=== PATIENT | female | born 1995 | race Caucasian/White ===

== ENCOUNTER 2018-05-10 21:54 | Inpatient (IN) | payer SELFPAY ==
[2018-05-10] MEDS ORDERED: Ondansetron 4 MG/2 ML SDV IVPUSH PRN (22:24)
[2018-05-10] MEDS ORDERED: Nalbuphine 20 MG/ML 1 ML Syringe IVPUSH PRN (22:24)
[2018-05-10] MEDS ORDERED: Sodium Chloride 0.9% 10 ML Syringe FLUSH PRN (22:24)
[2018-05-10] MEDS ORDERED: Acetaminophen 325 MG Tab PO PRN (22:24)
--- NOTE | 2018-05-10 22:26 | PCM.LDHP ---
L&D History of Present Illness - General Date of Service: 05/10/18 Admit Problem/Dx: Patient Status Order with Admit Dx/Problem 05/10/18 22:24 Patient Status [ADT] Routine Admission Diagnosis/Problem Admission Diagnosis/Problem Normal labor Source of Information: Patient History Limitations: Reports: No Limitations - History of Present Illness Introduction:: Patient is a 22 y/o at 40 4/7 wks gestation who presents in labor. Reports uncomplicated . Began albina earlier today. No LOF or VB. No other issues. 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 LMP (Approximate): - Past Surgical History Respiratory Surgical History: Reports: Other (See Below) (Procedure for tracheomalacia at 4 months of life) GI Surgical History: Reports: Appendectomy Social & Family History - Tobacco Use Smoking Status *Q: Never Smoker - Alcohol Use Alcohol Use History: No - Recreational Drug Use Recreational Drug Use: No H&P Review of Systems - Review of Systems: Review Of Systems: See Below General: Reports: No Symptoms Pulmonary: Reports: No Symptoms Cardiovascular: Reports: No Symptoms Gastrointestinal: Reports: Abdominal Pain (with contractions ) Genitourinary: Reports: No Symptoms Musculoskeletal: Reports: No Symptoms Psychiatric: Reports: No Symptoms Neurological: Reports: No Symptoms L&D Exam - Exam Exam: See Below - Vital Signs Vital Signs: Last Vital Signs Temp 36.5 C 05/10/18 22:13 Pulse 105 H 05/10/18 22:13 Resp 18 05/10/18 22:13 BP 136/91 H 05/10/18 22:13 Pulse Ox Weight: 75.07 kg - OB Specific Contraction Intensity: Moderate Movement: Active Heart Tones: Present Heart Tones per Min: 155 Heart Rate (FHR) Variability: Moderate (6-25 bmp) Presentation: Vertex (per nursing exam) - Avalos Score Avalos Score Dilation: 3-4 cm (per nursing exam) - Exam General: Alert, Oriented, Cooperative Lungs: Clear to Auscultation, Normal Respiratory Effort Cardiovascular: Regular Rate, Regular Rhythm GI/Abdominal Exam: Soft, Non-Tender Genitourinary: Normal external exam Extremities: Normal Inspection Skin: Warm, Dry, Intact - Problem List (1) 40 weeks gestation of SNOMED Code(s): 52963459 ICD Code: Z3A.40 - 40 WEEKS GESTATION OF Status: Acute Current Visit: Yes (2) Normal labor SNOMED Code(s): 97012498 ICD Code: O80 - ENCOUNTER FOR FULL-TERM UNCOMPLICATED DELIVERY; Z37.9 - OUTCOME OF DELIVERY, UNSPECIFIED Status: Acute Current Visit: Yes Problem List Initiated/Reviewed/Updated: Yes Orders Last 24hrs: Active Orders 24 hr Category Date Time Status Patient Status [ADT] Routine ADT 05/10/18 22:24 Ordered Activity as Tolerated [RC] PFP Care 05/10/18 22:24 Ordered Communication Order [RC] ASDIRECTED Care 05/10/18 22:24 Ordered Heart Tones [RC] ASDIRECTED Care 05/10/18 22:24 Ordered Non Stress Test [RC] PER UNIT ROUTINE Care 05/10/18 22:24 Ordered Notify Provider [RC] PFP Care 05/10/18 22:24 Ordered Notify Provider [RC] PRN Care 05/10/18 22:24 Ordered Peripheral IV Care [RC] . DIRECTED Care 05/10/18 22:24 Ordered Vital Signs [RC] PER UNIT ROUTINE Care 05/10/18 22:24 Ordered Regular Diet [DIET] Diet 05/10/18 Dinner Ordered ALANINE AMINOTRANSFERASE,ALT [CHEM] Routine Lab 05/10/18 22:24 Ordered ASPARTATE AMNIOTRANSFERASE,AST [CHEM] Routine Lab 05/10/18 22:24 Ordered CBC W/O DIFF,HEMOGRAM [HEME] Routine Lab 05/10/18 22:24 Ordered CREATININE W/GFR [CHEM] Routine Lab 05/10/18 22:24 Ordered RAPID PLASMA REAGIN,RPR [CHEM] Routine Lab 05/10/18 22:24 Ordered TYPE AND SCREEN [BBK] Routine Lab 05/10/18 22:24 Ordered Acetaminophen [Tylenol] Med 05/10/18 22:24 Ordered 650 mg PO Q4H PRN Lactated Ringers [Ringers, Lactated] 1,000 ml Med 05/10/18 22:30 Ordered IV ASDIRECTED Nalbuphine [Nubain] Med 05/10/18 22:24 Ordered 10 mg IVPUSH Q2H PRN Ondansetron [Zofran] Med 05/10/18 22:24 Ordered 4 mg IVPUSH Q4H PRN Oxytocin/Lactated Ringers [Pitocin in LR 10 Units/1,000 Med 05/10/18 22:30 Ordered ML] 10 unit in 1,000 ml IV .CONTINUOUS Sodium Chloride 0.9% [Saline Flush] Med 05/10/18 22:24 Ordered 10 ml FLUSH ASDIRECTED PRN Electronic Heart Tones Ext w TOCO [WOMSER] Oth 05/10/18 22:24 Ordered Routine Electronic Heart Tones Internal [WOMSER] Per Unit Ot 05/10/18 22:24 Ordered Routine Peripheral IV Insertion Adult [OM.PC] Routine Ot 05/10/18 22:24 Ordered Resuscitation Status Routine Resus Stat 05/10/18 22:24 Ordered Assessment/Plan Comment:: 22 y/o at 40 4/7 wks presents in labor * Patient with 2 low mild range BP's. Will order labs and monitor closely. If findings of severe disease would require magnesium. She expressed understanding * GBS negative, no need for antibiotics * Pain management per patient preference * Anticipate
[2018-05-10] MEDS ORDERED: Oxytocin/Lactated Ringers 10 UNIT/1,000 ML BAG IV SCH (22:30)
[2018-05-10] MEDS: Lactated Ringers 1,000 ML IV SCH (23:47)
[2018-05-11] MEDS ORDERED: Ondansetron 4 MG/2 ML SDV IVPUSH PRN ×2 (00:41→06:04)
[2018-05-11] MEDS ORDERED: fentaNYL 100 MCG/2 ML SDV EPIDUR PRN (00:41)
[2018-05-11] MEDS ORDERED: ePHEDrine 50 MG/ML SDV IVPUSH PRN ×2 (00:41→06:04)
--- NOTE | 2018-05-11 00:43 | PCM.PREANE ---
Preanesthetic Assessment - Anesthesia/Transfusion/Family Hx Anesthesia History: Prior Anesthesia Without Reaction Family History of Anesthesia Reaction: No Transfusion History: No Prior Transfusion(s) Intubation History: Unknown - Review of Systems General: Fatigue Pulmonary: No Symptoms Cardiovascular: No Symptoms (Gestational HTN towards the end of ) Gastrointestinal: Constipation, Nausea Neurological: Seizure (infant febrile seizure.) Other: Reports: None (history of low blood sugar) - Physical Assessment NPO Status Date: 05/10/18 NPO Status Time: 17:00 Pulse: 105 O2 Sat by Pulse Oximetry: 99 Respiratory Rate: 18 Blood Pressure: 136/91 Temperature: 36.5 C Vital Signs: Last Vital Signs Temp 36.5 C 05/10/18 22:13 Pulse 105 H 05/10/18 22:13 Resp 18 05/10/18 22:13 BP 136/91 H 05/10/18 22:13 Pulse Ox Height: 1.6 m Weight: 75.07 kg ASA Class: 2 Mental Status: Alert & Oriented x3 Airway Class: Mallampati = 2 Dentition: Reports: Normal Dentition, Caries Thyro-Mental Finger Breadths: 3 Mouth Opening Finger Breadths: 3 ROM/Head Extension: Full Lungs: Clear to Auscultation, Normal Respiratory Effort Cardiovascular: Regular Rate, Regular Rhythm, No Murmurs - Lab Values: Laboratory Last Values WBC 11.79 K/mm3 (3.98-10.04) H 05/10/18 22:50 RBC 4.52 M/mm3 (3.98-5.22) 05/10/18 22:50 Hgb 12.4 gm/L (11.2-15.7) 05/10/18 22:50 Hct 38.1 % (34.1-44.9) 05/10/18 22:50 MCV 84.3 fl (79.4-94.8) 05/10/18 22:50 MCH 27.4 pg (25.6-32.2) 05/10/18 22:50 MCHC 32.5 g/dl (32.2-35.5) 05/10/18 22:50 RDW Std Deviation 39.6 fL (36.4-46.3) 05/10/18 22:50 Plt Count 163 K/mm3 (182-369) L 05/10/18 22:50 MPV 11.3 fl (9.4-12.3) 05/10/18 22:50 Creatinine 0.6 mg/dL (0.55-1.02) 05/10/18 22:50 Est Cr Clr Drug Dosing 122.69 mL/min 05/10/18 22:50 Estimated GFR (MDRD) > 60 mL/min (>60) 05/10/18 22:50 AST 16 U/L (15-37) 05/10/18 22:50 ALT 22 U/L (14-59) 05/10/18 22:50 Blood Type O POSITIVE 05/10/18 22:50 Gel Antibody Screen Negative 05/10/18 22:50 Above labs reviewed and noted and within acceptable ranges to proceed with epidural. 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: Neurological History: Reports: Seizure, Other (See Below) Other Neuro History: febrile seizures as a baby - Past Surgical History Respiratory Surgical History: Reports: Other (See Below) (Procedure for tracheomalacia at 4 months of life) GI Surgical History: Reports: Appendectomy - SUBSTANCE USE Smoking Status *Q: Never Smoker Recreational Drug Use History: No - HOME MEDS Home Medications: Home Meds Multivitamin [Multivitamins] 1 each PO 05/10/18 [History] - CURRENT (IN HOUSE) MEDS Current Meds: Current Medications Acetaminophen (Tylenol) 650 mg PO Q4H PRN PRN Reason: Pain (Mild 1-3) and fever Lactated Ringer's (Ringers, Lactated) 1,000 mls @ 100 mls/hr IV ASDIRECTED MARYCHUY Last Infusion: 05/10/18 23:47 Dose: 999 mls/hr Oxytocin/Lactated Ringer's (Pitocin In Lr 10 Units/1,000 Ml) 10 unit in 1,000 mls @ 500 mls/hr IV .CONTINUOUS MARYCHUY Nalbuphine HCl (Nubain) 10 mg IVPUSH Q2H PRN PRN Reason: pain Ondansetron HCl (Zofran) 4 mg IVPUSH Q4H PRN PRN Reason: Nausea/Vomiting Sodium Chloride (Saline Flush) 10 ml FLUSH ASDIRECTED PRN PRN Reason: Keep Vein Open
[2018-05-11] MEDS ORDERED: Bupivacaine/fentaNYL/NS 100 ML Bag EPIDUR SCH (00:45)
[2018-05-11] MEDS: Lactated Ringers 1,000 ML IV SCH ×2 (01:24→03:09)
[2018-05-11] MEDS ORDERED: ceFAZolin 2 GM in Premix Bag 1 BAG IV ONE (04:58)
[2018-05-11] MEDS ORDERED: Citric Acid/Sodium Citrate Solution 30 ML Cup ONE (04:58)
[2018-05-11] MEDS ORDERED: Metoclopramide 10 MG/2 ML SDV IVPUSH ONE (04:58)
[2018-05-11] MEDS ORDERED: Citric Acid/Sodium Citrate Solution 30 ML Cup PO ONE (04:58)
[2018-05-11] MEDS ORDERED: Metoclopramide 10 MG/2 ML SDV ONE (04:58)
--- NOTE | 2018-05-11 05:05 | PCM.SN ---
- Free Text/Narrative Note: Called by nursing at 0406, patient 5 cm with BBOW. Have had intermittent prolonged decelerations, mostly recently at 0400 with SVE. In to assess patient. At 0430 patient noted to be 8-9 cm with a BBOW. AROM performed with release of meconium stained amniotic fluid. IUPC placed. FSE attempted to be placed but unsuccessful. Patient with then another prolonged deceleration into the 70's. Decision made to alert OR crew for . Will move to back. If complete there will attempt pushing. If tolerates will continue there. If continues to have these large decelerations will move to . Patient and her agree. Ambika Armijo MD
[2018-05-11] MEDS ORDERED: Ketorolac 30 MG/ML SDV ONE (05:09)
[2018-05-11] MEDS ORDERED: Oxytocin 10 Units/1 ML SDV ONE (05:09)
[2018-05-11] MEDS ORDERED: ceFAZolin 1 GM Vial ONE (05:09)
[2018-05-11] MEDS ORDERED: Ondansetron 4 MG/2 ML SDV ONE (05:09)
[2018-05-11] MEDS ORDERED: Phenylephrine 1% 10 MG/ML SDV ONE (05:09)
[2018-05-11] MEDS ORDERED: Lactated Ringers 2,000 ML ONE (05:09)
[2018-05-11] MEDS ORDERED: fentaNYL 100 MCG/2 ML SDV ONE (05:14)
[2018-05-11] MEDS ORDERED: Lidocaine 2% with EPINEPHrine 1:200,000 20 ML SDV ONE (05:14)
[2018-05-11] MEDS ORDERED: Morphine PF 10 MG/10 ML SDV ONE (05:16)
--- NOTE | 2018-05-11 05:30 | PCM.SN ---
- Free Text/Narrative Note: 0530 OR crew ready. Fetus has recovered slightly. Since there has been some recovery FOB would now like to defer moving forward with . Reviewed that given previous findings on tracing I don't think it's likely that baby will tolerate pushing effort, however, status is reassuring in this moment and I will not do a against their will. They express understanding. Prefer to monitor. OR crew on standby. Ambika Armijo MD
[2018-05-11] MEDS ORDERED: Bupivacaine 0.25% 10 ML SDV ONE (06:00)
[2018-05-11] MEDS ORDERED: Meperidine PF 50 MG/ML Syringe IVPUSH PRN (06:04)
[2018-05-11] MEDS ORDERED: diphenhydrAMINE 50 MG/ML SDV IVPUSH PRN ×2 (06:04→06:59)
[2018-05-11] MEDS ORDERED: fentaNYL 100 MCG/2 ML SDV IVPUSH PRN (06:04)
[2018-05-11] MEDS ORDERED: HYDROmorphone 0.5 MG/0.5 ML Syringe IVPUSH PRN (06:05)
[2018-05-11] MEDS ORDERED: Phenylephrine 1 MG in Sodium Chloride 0.9% 10 ML IV SCH (06:15)
[2018-05-11] MEDS ORDERED: Meperidine PF 50 MG/ML Syringe ONE (06:18)
--- NOTE | 2018-05-11 06:40 | PCM.POSTAN ---
POST ANESTHESIA ASSESSMENT - MENTAL STATUS Mental Status: Alert - VITAL SIGNS Pulse Rate: 139 SaO2: 100 Resp Rate: 11 Blood Pressure: 145/85 Temperature: 37.4 C - RESPIRATORY Respiratory Status: Respiratory Rate WNL, Airway Patent, O2 Saturation Stable - CARDIOVASCULAR CV Status: Pulse Rate WNL, Blood Pressure Stable - GASTROINTESTINAL GI Status: No Symptoms - POST OP HYDRATION Hydration Status: Adequate & Stable
[2018-05-11] MEDS ORDERED: Ibuprofen 600 MG Tab PO PRN (06:59)
[2018-05-11] MEDS ORDERED: Docusate Sodium 100 MG Cap PO PRN (06:59)
[2018-05-11] MEDS ORDERED: Lanolin 100% Cream 7 GM Tube TOP PRN (06:59)
--- NOTE | 2018-05-11 06:59 | PCM.SN ---
- Free Text/Narrative Note: Shortly after last last note baby with several more decelerations down into the 70's. Family agreeable to PLTCS. Moved to OR.
[2018-05-11] MEDS ORDERED: Dextrose 5%-Lactated Ringers 1,000 ML IV SCH (07:00)
--- NOTE | 2018-05-11 07:04 | PCM.OPNOTE ---
- General Post-Op/Procedure Note Date of Surgery/Procedure: 05/11/18 Operative Procedure(s): Primary low transverse Findings: Baby boy in a vertex presentation, ROP, with Apgars of 8 & 9 and weight of 7 lbs 15 oz. Normal appearance of the uterus, fallopian tubes, and ovaries. 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 Placenta discarded. Fluid Replacement, Intraop: 800 Output, Urine Amount: 200 EBL in mLs: 800 Complications: None Condition: Good Free Text/Narrative:: The risks, benefits, indications, potential complications, and alternatives were explained to the patient and informed consent obtained. After induction of anesthesia, the patient was placed in a supine position and then draped and prepped in the usual sterile manner. A Pfannenstiel incision was made and carried down through the subcutaneous tissue to the fascia. Fascial incision was made and extended transversely. The fascia was from the underlying rectus tissue superiorly and inferiorly. The peritoneum was identified and entered. Peritoneal incision was extended longitudinally. The utero-vesical peritoneal reflection was incised transversely and the bladder flap was bluntly freed from the lower uterine segment. A low transverse uterine incision was made sharply with a scalpel and extended bluntly in a cephalocaudad direction. A baby boy was delivered from a vertex presentation with APGARS as above. After the umbilical cord was clamped and cut cord blood was obtained for evaluation. The placenta was removed intact and appeared normal. The uterus was exteriorized and cleared of clots. The uterine outline, tubes and ovaries appeared normal. The uterine incision was closed with running locked sutures of 0 Vicryl. Hemostasis was obtained with a second imbricating layer of 0 vicryl. The uterus was then placed back into the abdomen. The infracolic gutters were cleared of blood clots. The fascia was then reapproximated with running sutures of 0 Vicryl. The sucutaneous tissue was irrigated with sterile warm normal saline, hemostasis obtained with cautery. This layer was also closed with a running 0 vicryl. The skin was reapproximated with running Subcuticular 4-0 monocryl sutures. Instrument, sponge, and needle counts were correct prior the abdominal closure and at the conclusion of the case.
[2018-05-11] MEDS: Ketorolac 30 MG/ML SDV IVPUSH SCH ×2 (11:59→18:31)
--- NOTE | 2018-05-11 15:40 | PCM48HPAN ---
Post Anesthesia Note - EVALUATION WITHIN 48HRS OF ANESTHETIC Vital Signs in Normal Range: Yes Patient Participated in Evaluation: Yes Respiratory Function Stable: Yes Airway Patent: Yes Cardiovascular Function Stable: Yes Hydration Status Stable: Yes Pain Control Satisfactory: Yes Nausea and Vomiting Control Satisfactory: Yes Mental Status Recovered: Yes
[2018-05-12] MEDS: Ketorolac 30 MG/ML SDV IVPUSH SCH ×2 (00:37→00:55)
[2018-05-12] MEDS ORDERED: Ibuprofen 600 MG Tab PO PRN (06:30)
--- NOTE | 2018-05-12 07:00 | PCM.PNPP ---
- General Info Date of Service: 05/12/18 Functional Status: Reports: Pain Controlled, Tolerating Diet, Ambulating - Review of Systems General: Reports: No Symptoms Pulmonary: Reports: No Symptoms Cardiovascular: Reports: No Symptoms Gastrointestinal: Reports: Abdominal Pain (managed with medications ) Genitourinary: Reports: No Symptoms Musculoskeletal: Reports: No Symptoms - Patient Data Vital Signs - Most Recent: Last Vital Signs Temp 36.6 C 05/12/18 02:00 Pulse 95 05/12/18 02:24 Resp 16 05/12/18 06:00 BP 115/75 05/12/18 02:24 Pulse Ox 98 05/12/18 06:00 Weight - Most Recent: 75.07 kg I&O - Last 24 Hours: Intake & Output 05/11/18 05/12/18 05/12/18 22:59 06:59 14:59 Intake Total 4340 Output Total 3050 Balance 1290 Med Orders - Current: Current Medications Diphenhydramine HCl (Benadryl) 25 mg IVPUSH Q6H PRN PRN Reason: Itching or Nausea Docusate Sodium (Colace) 100 mg PO Q12H PRN PRN Reason: Constipation Emollient Ointment (Lansinoh Hpa) 0 gm TOP ASDIRECTED PRN PRN Reason: Sore Nipples Fentanyl (Sublimaze) 50 mcg IVPUSH Q5M PRN PRN Reason: Pain Hydromorphone HCl (Dilaudid) 0.5 mg IVPUSH ONETIME PRN PRN Reason: Pain Phenylephrine HCl 1 mg/ Sodium (Chloride) 10.1 mls @ 1 mls/sec IV TITRATE MARYCHUY; Protocol Ibuprofen (Motrin) 600 mg PO Q6H PRN PRN Reason: mild pain or fever Meperidine HCl (Demerol) 12.5 mg IVPUSH ONETIME PRN PRN Reason: shivering Ondansetron HCl (Zofran) 4 mg IVPUSH ONETIME PRN PRN Reason: Nausea/Vomiting Oxycodone/Acetaminophen (Percocet 325-5 Mg) 2 tab PO Q4H PRN PRN Reason: Pain (moderate 4-6) Discontinued Medications Acetaminophen (Tylenol) 650 mg PO Q4H PRN PRN Reason: Pain (Mild 1-3) and fever Cefazolin Sodium (Ancef) Confirm Administered Dose 2 gm .ROUTE .STK-MED ONE Stop: 05/11/18 05:10 Citric Acid/Sodium Citrate (Bicitra Solution) 30 ml PO ONETIME ONE Stop: 05/11/18 04:59 Last Admin: 05/11/18 05:01 Dose: 30 ml Citric Acid/Sodium Citrate (Bicitra Solution) Confirm Administered Dose 30 ml .ROUTE .[facility] ONE Stop: 05/11/18 04:59 Last Admin: 05/11/18 07:00 Dose: Not Given Diphenhydramine HCl (Benadryl) 25 mg IVPUSH Q6H PRN PRN Reason: pruritis Ephedrine Sulfate (Ephedrine Sulfate) 5 mg IVPUSH ASDIRECTED PRN PRN Reason: Hypotension Ephedrine Sulfate (Ephedrine Sulfate) 5 mg IVPUSH ASDIRECTED PRN PRN Reason: Hypotension Fentanyl (Sublimaze) 100 mcg EPIDUR Q3H PRN PRN Reason: Pain Last Admin: 05/11/18 00:53 Dose: 100 mcg Fentanyl (Sublimaze) Confirm Administered Dose 100 mcg .ROUTE .[facility] ONE Stop: 05/11/18 05:15 Fentanyl/Bupivacaine HCl (Fentanyl/Bupivacaine/Ns 2 Mcg-0.125% 100 Ml) 100 ml EPIDUR ASDIRECTED [facility] Last Admin: 05/11/18 00:53 Dose: 100 ml Lactated Ringer's (Ringers, Lactated) 1,000 mls @ 100 mls/hr IV ASDIRECTED [facility] Last Admin: 05/11/18 03:09 Dose: 100 mls/hr Oxytocin/Lactated Ringer's (Pitocin In Lr 10 Units/1,000 Ml) 10 unit in 1,000 mls @ 500 mls/hr IV .CONTINUOUS [facility] Cefazolin Sodium/Dextrose 2 gm (/ Premix) 50 mls @ 100 mls/hr IV ONETIME ONE Stop: 05/11/18 05:27 Lactated Ringer's (Ringers, Lactated) Confirm Administered Dose 2,000 mls @ as directed .ROUTE .STK-[facility] ONE Stop: 05/11/18 05:10 Dextrose/Lactated Ringer's (Dextrose 5%-Lactated Ringers) 1,000 mls @ 125 mls/ hr IV ASDIRECTED [facility] Stop: 05/11/18 14:59 Last Admin: 05/11/18 10:06 Dose: 125 mls/hr Ibuprofen (Motrin) 600 mg PO Q6H PRN PRN Reason: mild pain or fever Ketorolac Tromethamine (Toradol) Confirm Administered Dose 30 mg .ROUTE .STK- MED ONE Stop: 05/11/18 05:10 Ketorolac Tromethamine (Toradol) 30 mg IVPUSH Q6H MARYCHUY Stop: 05/12/18 00:16 Last Admin: 05/12/18 00:55 Dose: Not Given Lidocaine/Epinephrine (Xylocaine-Mpf 2%-Epi 1:200,000) Confirm Administered Dose 20 ml .ROUTE .STK-MED ONE Stop: 05/11/18 05:15 Meperidine HCl (Demerol) Confirm Administered Dose 50 mg .ROUTE .STK-MED ONE Stop: 05/11/18 06:19 Metoclopramide HCl (Reglan) 10 mg IVPUSH ONETIME ONE Stop: 05/11/18 04:59 Last Admin: 05/11/18 05:01 Dose: 10 mg Metoclopramide HCl (Reglan) Confirm Administered Dose 10 mg .ROUTE .STK-MED ONE Stop: 05/11/18 04:59 Last Admin: 05/11/18 07:00 Dose: Not Given Morphine Sulfate (Duramorph Pf) Confirm Administered Dose 10 mg .ROUTE .STK-MED ONE Stop: 05/11/18 05:17 Nalbuphine HCl (Nubain) 10 mg IVPUSH Q2H PRN PRN Reason: pain Ondansetron HCl (Zofran) 4 mg IVPUSH Q4H PRN PRN Reason: Nausea/Vomiting Ondansetron HCl (Zofran) 4 mg IVPUSH ONETIME PRN PRN Reason: Nausea/Vomiting Ondansetron HCl (Zofran) Confirm Administered Dose 4 mg .ROUTE .STK-MED ONE Stop: 05/11/18 05:10 Oxytocin (Pitocin) Confirm Administered Dose 10 unit .ROUTE .STK-MED ONE Stop: 05/11/18 05:10 Phenylephrine HCl (Dg-Synephrine) Confirm Administered Dose 10 mg .ROUTE .STK- MED ONE Stop: 05/11/18 05:10 Sodium Chloride (Saline Flush) 10 ml FLUSH ASDIRECTED PRN PRN Reason: Keep Vein Open - Interaction Disposition, : in Room with Family Interaction: Holding Feeding: Breastfed ; Nursed Well Support Person: - Recovery Exam Fundal Tone: Firm Fundal Level: 1 Fingerbreadths Below Umbilicus Fundal Placement: Midline Lochia Amount: Small Lochia Color: Rubra/Red Perineum Description: Intact, Minimal Bruising/Swelling Bladder Status: Voiding Urinary Elimination: Voided - Exam General: Alert, Oriented, Cooperative Lungs: Clear to Auscultation, Normal Respiratory Effort Cardiovascular: Regular Rate, Regular Rhythm GI/Abdominal Exam: Soft, Tender (appropriate post op) Extremities: Normal Inspection Skin: Warm, Dry, Intact Wound/Incisions: Healing Well, No Drainage - Problem List & Annotations (1) 40 weeks gestation of SNOMED Code(s): 06310084 Code(s): Z3A.40 - 40 WEEKS GESTATION OF Status: Acute Current Visit: Yes (2) Normal labor SNOMED Code(s): 63405374 Code(s): O80 - ENCOUNTER FOR FULL-TERM UNCOMPLICATED DELIVERY; Z37.9 - OUTCOME OF DELIVERY, UNSPECIFIED Status: Acute Current Visit: Yes (3) Meconium stained amniotic fluid, delivered, current hospitalization SNOMED Code(s): 708959507 Code(s): O77.0 - LABOR AND DELIVERY COMPLICATED BY MECONIUM IN AMNIOTIC FLUID Status: Acute Current Visit: Yes (4) Non-reassuring heart rate or rhythm affecting management of mother SNOMED Code(s): 490281126, 109909707, 310626126 Code(s): O36.8390 - MATERN CARE FOR ABNLT FETL HRT RATE OR RHYM, UNSP TRI, UNSP Status: Acute Current Visit: Yes (5) S/P primary low transverse SNOMED Code(s): 007190564, 29175132, 269875256, 339244687, 968676896 Code(s): Z98.891 - HISTORY OF UTERINE SCAR FROM PREVIOUS SURGERY Status: Acute Current Visit: Yes - Problem List Review Problem List Initiated/Reviewed/Updated: Yes - My Orders Last 24 Hours: My Active Orders 05/11/18 06:59 Activity as Tolerated [RC] .Routine Communication Order [RC] PER UNIT ROUTINE May Shower [RC] PER UNIT ROUTINE Notify Provider Intake and Out [RC] ASDIRECTED RT Incentive Spirometry [RC] Q2HWA Acetaminophen/oxyCODONE [Percocet 325-5 MG] 2 tab PO Q4H PRN Docusate Sodium [Colace] 100 mg PO Q12H PRN Lanolin [Lansinoh HPA] See Dose Instructions TOP ASDIRECTED PRN diphenhydrAMINE [Benadryl] 25 mg IVPUSH Q6H PRN Assess Lochia [WOMSER] Per Unit Routine Assess Uterine Involution [WOMSER] Per Unit Routine Breast Pump [WOMSER] Per Unit Routine Heat Therapy [OM.PC] Per Unit Routine Peripheral IV Discontinue [OM.PC] Routine Sequential Compression Device [OM.PC] Per Unit Routine 05/11/18 Breakfast Regular Diet [DIET] 05/12/18 05:11 CBC W/O DIFF,HEMOGRAM [HEME] AM 05/12/18 06:30 Ibuprofen [Motrin] 600 mg PO Q6H PRN 05/12/18 06:52 Urinary Catheter Removal [RC] Per Unit Routine - Assessment Assessment:: 22 y/o G1 now P1001 POD#1 from PLTCS at 40 5/7 wks gestation for NRFS - Plan Plan:: S/p PLTCS * CBC done this AM and appropriate * Routine cares * Breast feeding * Discharge home in 1-2 days pending patient course
[2018-05-12] MEDS: Acetaminophen/oxyCODONE 325-5 MG Tab PO PRN ×3 (08:53→20:31)
[2018-05-13] MEDS: Acetaminophen/oxyCODONE 325-5 MG Tab PO PRN ×2 (04:32→11:12)
--- NOTE | 2018-05-13 07:03 | PCM.PNPP ---
- General Info Date of Service: 05/13/18 Functional Status: Reports: Pain Controlled, Tolerating Diet, Ambulating, Urinating - Review of Systems General: Reports: No Symptoms Pulmonary: Reports: No Symptoms Cardiovascular: Reports: No Symptoms Gastrointestinal: Reports: Abdominal Pain (managed with medications) Genitourinary: Reports: No Symptoms Musculoskeletal: Reports: No Symptoms Neurological: Reports: No Symptoms - Patient Data Vital Signs - Most Recent: Last Vital Signs Temp 36.6 C 05/13/18 02:33 Pulse 92 05/13/18 02:33 Resp 15 05/13/18 02:33 BP 122/85 05/13/18 02:33 Pulse Ox 99 05/13/18 02:33 Weight - Most Recent: 75.07 kg Lab Results - Last 24 Hours: Laboratory Results - last 24 hr 05/10/18 05/12/18 Range/Units 22:50 06:30 WBC 11.21 H (3.98-10.04) K/mm3 RBC 4.17 (3.98-5.22) M/mm3 Hgb 11.2 (11.2-15.7) gm/L Hct 35.9 (34.1-44.9) % MCV 86.1 (79.4-94.8) fl MCH 26.9 (25.6-32.2) pg MCHC 31.2 L (32.2-35.5) g/dl RDW Std Deviation 40.9 (36.4-46.3) fL Plt Count 146 L (182-369) K/mm3 MPV 11.5 (9.4-12.3) fl RPR Non-reactive (NONREACTIVE) Med Orders - Current: Current Medications Diphenhydramine HCl (Benadryl) 25 mg IVPUSH Q6H PRN PRN Reason: Itching or Nausea Docusate Sodium (Colace) 100 mg PO Q12H PRN PRN Reason: Constipation Last Admin: 05/12/18 22:20 Dose: 100 mg Emollient Ointment (Lansinoh Hpa) 0 gm TOP ASDIRECTED PRN PRN Reason: Sore Nipples Ibuprofen (Motrin) 600 mg PO Q6H PRN PRN Reason: mild pain or fever Oxycodone/Acetaminophen (Percocet 325-5 Mg) 2 tab PO Q4H PRN PRN Reason: Pain (moderate 4-6) Last Admin: 05/13/18 04:32 Dose: 2 tab Discontinued Medications Acetaminophen (Tylenol) 650 mg PO Q4H PRN PRN Reason: Pain (Mild 1-3) and fever Bupivacaine HCl (Sensorcaine-Mpf 0.25%) 10 ml .ROUTE .STK-MED ONE Stop: 05/11/18 06:01 Cefazolin Sodium (Ancef) Confirm Administered Dose 2 gm .ROUTE .STK-MED ONE Stop: 05/11/18 05:10 Citric Acid/Sodium Citrate (Bicitra Solution) 30 ml PO ONETIME ONE Stop: 05/11/18 04:59 Last Admin: 05/11/18 05:01 Dose: 30 ml Citric Acid/Sodium Citrate (Bicitra Solution) Confirm Administered Dose 30 ml .ROUTE .STK-MED ONE Stop: 05/11/18 04:59 Last Admin: 05/11/18 07:00 Dose: Not Given Diphenhydramine HCl (Benadryl) 25 mg IVPUSH Q6H PRN PRN Reason: pruritis Ephedrine Sulfate (Ephedrine Sulfate) 5 mg IVPUSH ASDIRECTED PRN PRN Reason: Hypotension Ephedrine Sulfate (Ephedrine Sulfate) 5 mg IVPUSH ASDIRECTED PRN PRN Reason: Hypotension Fentanyl (Sublimaze) 100 mcg EPIDUR Q3H PRN PRN Reason: Pain Last Admin: 05/11/18 00:53 Dose: 100 mcg Fentanyl (Sublimaze) Confirm Administered Dose 100 mcg .ROUTE .STK-MED ONE Stop: 05/11/18 05:15 Fentanyl (Sublimaze) 50 mcg IVPUSH Q5M PRN PRN Reason: Pain Fentanyl/Bupivacaine HCl (Fentanyl/Bupivacaine/Ns 2 Mcg-0.125% 100 Ml) 100 ml EPIDUR ASDIRECTED [facility] Last Admin: 05/11/18 00:53 Dose: 100 ml Hydromorphone HCl (Dilaudid) 0.5 mg IVPUSH ONETIME PRN PRN Reason: Pain Lactated Ringer's (Ringers, Lactated) 1,000 mls @ 100 mls/hr IV ASDIRECTED [facility] Last Admin: 05/11/18 03:09 Dose: 100 mls/hr Oxytocin/Lactated Ringer's (Pitocin In Lr 10 Units/1,000 Ml) 10 unit in 1,000 mls @ 500 mls/hr IV .CONTINUOUS [facility] Cefazolin Sodium/Dextrose 2 gm (/ Premix) 50 mls @ 100 mls/hr IV ONETIME ONE Stop: 05/11/18 05:27 Lactated Ringer's (Ringers, Lactated) Confirm Administered Dose 2,000 mls @ as directed .ROUTE .STK-MED ONE Stop: 05/11/18 05:10 Phenylephrine HCl 1 mg/ Sodium (Chloride) 10.1 mls @ 1 mls/sec IV TITRATE MARYCHUY; Protocol Dextrose/Lactated Ringer's (Dextrose 5%-Lactated Ringers) 1,000 mls @ 125 mls/ hr IV ASDIRECTED [facility] Stop: 05/11/18 14:59 Last Admin: 05/11/18 10:06 Dose: 125 mls/hr Ibuprofen (Motrin) 600 mg PO Q6H PRN PRN Reason: mild pain or fever Ketorolac Tromethamine (Toradol) Confirm Administered Dose 30 mg .ROUTE .STK- MED ONE Stop: 05/11/18 05:10 Ketorolac Tromethamine (Toradol) 30 mg IVPUSH Q6H [facility] Stop: 05/12/18 00:16 Last Admin: 05/12/18 00:55 Dose: Not Given Lidocaine/Epinephrine (Xylocaine-Mpf 2%-Epi 1:200,000) Confirm Administered Dose 20 ml .ROUTE .STK-MED ONE Stop: 05/11/18 05:15 Meperidine HCl (Demerol) 12.5 mg IVPUSH ONETIME PRN PRN Reason: shivering Meperidine HCl (Demerol) Confirm Administered Dose 50 mg .ROUTE .STK-MED ONE Stop: 05/11/18 06:19 Metoclopramide HCl (Reglan) 10 mg IVPUSH ONETIME ONE Stop: 05/11/18 04:59 Last Admin: 05/11/18 05:01 Dose: 10 mg Metoclopramide HCl (Reglan) Confirm Administered Dose 10 mg .ROUTE .STK-MED ONE Stop: 05/11/18 04:59 Last Admin: 05/11/18 07:00 Dose: Not Given Morphine Sulfate (Duramorph Pf) Confirm Administered Dose 10 mg .ROUTE .STK-MED ONE Stop: 05/11/18 05:17 Nalbuphine HCl (Nubain) 10 mg IVPUSH Q2H PRN PRN Reason: pain Ondansetron HCl (Zofran) 4 mg IVPUSH Q4H PRN PRN Reason: Nausea/Vomiting Ondansetron HCl (Zofran) 4 mg IVPUSH ONETIME PRN PRN Reason: Nausea/Vomiting Ondansetron HCl (Zofran) Confirm Administered Dose 4 mg .ROUTE .STK-MED ONE Stop: 05/11/18 05:10 Ondansetron HCl (Zofran) 4 mg IVPUSH ONETIME PRN PRN Reason: Nausea/Vomiting Oxytocin (Pitocin) Confirm Administered Dose 10 unit .ROUTE .STK-MED ONE Stop: 05/11/18 05:10 Phenylephrine HCl (Dg-Synephrine) Confirm Administered Dose 10 mg .ROUTE .STK- MED ONE Stop: 05/11/18 05:10 Sodium Chloride (Saline Flush) 10 ml FLUSH ASDIRECTED PRN PRN Reason: Keep Vein Open - Interaction Disposition, : in Room with Family Interaction: Holding Infant Infant Feeding: Breastfed ; Nursed Well Support Person: - Recovery Exam Fundal Tone: Firm Fundal Level: 1 Fingerbreadths Below Umbilicus Fundal Placement: Midline Lochia Amount: Small Lochia Color: Rubra/Red Perineum Description: Intact, Minimal Bruising/Swelling Episiotomy/Laceration: None Bladder Status: Voiding Urinary Elimination: Voided - Exam General: Alert, Oriented, Cooperative Lungs: Clear to Auscultation, Normal Respiratory Effort Cardiovascular: Regular Rate, Regular Rhythm GI/Abdominal Exam: Soft, Non-Tender Extremities: Normal Inspection Skin: Warm, Dry, Intact Wound/Incisions: Healing Well, No Drainage - Problem List & Annotations (1) 40 weeks gestation of SNOMED Code(s): 45816343 Code(s): Z3A.40 - 40 WEEKS GESTATION OF Status: Acute Current Visit: Yes (2) Normal labor SNOMED Code(s): 06086985 Code(s): O80 - ENCOUNTER FOR FULL-TERM UNCOMPLICATED DELIVERY; Z37.9 - OUTCOME OF DELIVERY, UNSPECIFIED Status: Acute Current Visit: Yes (3) Meconium stained amniotic fluid, delivered, current hospitalization SNOMED Code(s): 003216038 Code(s): O77.0 - LABOR AND DELIVERY COMPLICATED BY MECONIUM IN AMNIOTIC FLUID Status: Acute Current Visit: Yes (4) Non-reassuring heart rate or rhythm affecting management of mother SNOMED Code(s): 312681728, 959897592, 350413613 Code(s): O36.8390 - MATERN CARE FOR ABNLT FETL HRT RATE OR RHYM, UNSP TRI, UNSP Status: Acute Current Visit: Yes (5) S/P primary low transverse SNOMED Code(s): 458546878, 78563197, 535081263, 079685401, 315769733 Code(s): Z98.891 - HISTORY OF UTERINE SCAR FROM PREVIOUS SURGERY Status: Acute Current Visit: Yes - Problem List Review Problem List Initiated/Reviewed/Updated: Yes - My Orders Last 24 Hours: My Active Orders 05/12/18 06:30 Ibuprofen [Motrin] 600 mg PO Q6H PRN - Assessment Assessment:: 22 y/o G1 now P1001 POD#2 from PLTCS at 40 5/7 wks gestation for NRFS - Plan Plan:: S/p PLTCS * Routine cares * Breast feeding * Discharge home today
--- NOTE | 2018-05-13 07:07 | PCM.DCSUM1 ---
Discharge Summary - Discharge Data Discharge Date: 05/13/18 Discharge Disposition: Home, Self-Care 01 Condition: Good - Discharge Diagnosis/Problem(s) (1) 40 weeks gestation of SNOMED Code(s): 65664843 ICD Code: Z3A.40 - 40 WEEKS GESTATION OF Status: Acute Current Visit: Yes (2) Normal labor SNOMED Code(s): 18945902 ICD Code: O80 - ENCOUNTER FOR FULL-TERM UNCOMPLICATED DELIVERY; Z37.9 - OUTCOME OF DELIVERY, UNSPECIFIED Status: Acute Current Visit: Yes (3) Meconium stained amniotic fluid, delivered, current hospitalization SNOMED Code(s): 175859826 ICD Code: O77.0 - LABOR AND DELIVERY COMPLICATED BY MECONIUM IN AMNIOTIC FLUID Status: Acute Current Visit: Yes (4) Non-reassuring heart rate or rhythm affecting management of mother SNOMED Code(s): 063454607, 270982376, 373096917 ICD Code: O36.8390 - MATERN CARE FOR ABNLT FETL HRT RATE OR RHYM, UNSP TRI, UNSP Status: Acute Current Visit: Yes (5) S/P primary low transverse SNOMED Code(s): 471187360, 72195646, 290667012, 420750659, 568969986 ICD Code: Z98.891 - HISTORY OF UTERINE SCAR FROM PREVIOUS SURGERY Status: Acute Current Visit: Yes - Patient Summary/Data Operative Procedure(s) Performed: Primary low transverse Complications: None Consults: None Recommended Follow-up Testing/Procedures: Follow up in 2 weeks for check Hospital Course: 22 y/o at 40 4/7 wks presented in labor. During labor had several large prolonged decelerations. Given frequency and magnitude of these decision made to proceed with PLTCS. See operative note. she did well and was discharged home on PPD#2 - Patient Instructions Diet: Regular Diet as Tolerated Activity: No Lifting Over 10 Pounds Activity, Other: Pelvic Rest for 6 weeks Driving: Do Not Drive (While taking narcotics ) Showering/Bathing: May Shower, No Tub Bathing/Swimming Wound/Incision Care: Keep Operative Site/Wound Site Clean and Dry Notify Provider of: Fever, Increased Pain, Swelling and Redness, Drainage - Discharge Plan *PRESCRIPTION DRUG MONITORING PROGRAM REVIEWED*: Yes (No patient of same name/ in system) *COPY OF PRESCRIPTION DRUG MONITORING REPORT IN PATIENT ANA: Not Applicable Prescriptions/Med Rec: Acetaminophen/oxyCODONE [Percocet 325-5 MG] 2 tab PO Q4H PRN #25 tablet PRN Reason: Pain (Moderate 4-6) Home Medications: Home Meds Multivitamin [Multivitamins] 1 each PO 05/10/18 [History] Acetaminophen/oxyCODONE [Percocet 325-5 MG] 2 tab PO Q4H PRN #25 tablet [Rx] Docusate Sodium [Colace] 100 mg PO Q12H PRN cap 05/13/18 [Rx] Ibuprofen [Motrin] 600 mg PO Q6H PRN tablet 05/13/18 [Rx] Referrals: Leon Donovan MD [Physician] - (2 weeks for check ) - Discharge Summary/Plan Comment DC Time >30 min.: No - Patient Data Vitals - Most Recent: Last Vital Signs Temp 36.6 C 05/13/18 02:33 Pulse 92 05/13/18 02:33 Resp 15 05/13/18 02:33 BP 122/85 05/13/18 02:33 Pulse Ox 99 05/13/18 02:33 Weight - Most Recent: 75.07 kg Lab Results - Last 24 hrs: Laboratory Results - last 24 hr 05/10/18 05/12/18 Range/Units 22:50 06:30 WBC 11.21 H (3.98-10.04) K/mm3 RBC 4.17 (3.98-5.22) M/mm3 Hgb 11.2 (11.2-15.7) gm/L Hct 35.9 (34.1-44.9) % MCV 86.1 (79.4-94.8) fl MCH 26.9 (25.6-32.2) pg MCHC 31.2 L (32.2-35.5) g/dl RDW Std Deviation 40.9 (36.4-46.3) fL Plt Count 146 L (182-369) K/mm3 MPV 11.5 (9.4-12.3) fl RPR Non-reactive (NONREACTIVE) Med Orders - Current: Current Medications Diphenhydramine HCl (Benadryl) 25 mg IVPUSH Q6H PRN PRN Reason: Itching or Nausea Docusate Sodium (Colace) 100 mg PO Q12H PRN PRN Reason: Constipation Last Admin: 05/12/18 22:20 Dose: 100 mg Emollient Ointment (Lansinoh Hpa) 0 gm TOP ASDIRECTED PRN PRN Reason: Sore Nipples Ibuprofen (Motrin) 600 mg PO Q6H PRN PRN Reason: mild pain or fever Oxycodone/Acetaminophen (Percocet 325-5 Mg) 2 tab PO Q4H PRN PRN Reason: Pain (moderate 4-6) Last Admin: 05/13/18 04:32 Dose: 2 tab Discontinued Medications Acetaminophen (Tylenol) 650 mg PO Q4H PRN PRN Reason: Pain (Mild 1-3) and fever Bupivacaine HCl (Sensorcaine-Mpf 0.25%) 10 ml .ROUTE .STK-MED ONE Stop: 05/11/18 06:01 Cefazolin Sodium (Ancef) Confirm Administered Dose 2 gm .ROUTE .STK-MED ONE Stop: 05/11/18 05:10 Citric Acid/Sodium Citrate (Bicitra Solution) 30 ml PO ONETIME ONE Stop: 05/11/18 04:59 Last Admin: 05/11/18 05:01 Dose: 30 ml Citric Acid/Sodium Citrate (Bicitra Solution) Confirm Administered Dose 30 ml .ROUTE .STK-MED ONE Stop: 05/11/18 04:59 Last Admin: 05/11/18 07:00 Dose: Not Given Diphenhydramine HCl (Benadryl) 25 mg IVPUSH Q6H PRN PRN Reason: pruritis Ephedrine Sulfate (Ephedrine Sulfate) 5 mg IVPUSH ASDIRECTED PRN PRN Reason: Hypotension Ephedrine Sulfate (Ephedrine Sulfate) 5 mg IVPUSH ASDIRECTED PRN PRN Reason: Hypotension Fentanyl (Sublimaze) 100 mcg EPIDUR Q3H PRN PRN Reason: Pain Last Admin: 05/11/18 00:53 Dose: 100 mcg Fentanyl (Sublimaze) Confirm Administered Dose 100 mcg .ROUTE .STK-MED ONE Stop: 05/11/18 05:15 Fentanyl (Sublimaze) 50 mcg IVPUSH Q5M PRN PRN Reason: Pain Fentanyl/Bupivacaine HCl (Fentanyl/Bupivacaine/Ns 2 Mcg-0.125% 100 Ml) 100 ml EPIDUR ASDIRECTED [facility] Last Admin: 05/11/18 00:53 Dose: 100 ml Hydromorphone HCl (Dilaudid) 0.5 mg IVPUSH ONETIME PRN PRN Reason: Pain Lactated Ringer's (Ringers, Lactated) 1,000 mls @ 100 mls/hr IV ASDIRECTED [facility] Last Admin: 05/11/18 03:09 Dose: 100 mls/hr Oxytocin/Lactated Ringer's (Pitocin In Lr 10 Units/1,000 Ml) 10 unit in 1,000 mls @ 500 mls/hr IV .CONTINUOUS [facility] Cefazolin Sodium/Dextrose 2 gm (/ Premix) 50 mls @ 100 mls/hr IV ONETIME ONE Stop: 05/11/18 05:27 Lactated Ringer's (Ringers, Lactated) Confirm Administered Dose 2,000 mls @ as directed .ROUTE .STK-MED ONE Stop: 05/11/18 05:10 Phenylephrine HCl 1 mg/ Sodium (Chloride) 10.1 mls @ 1 mls/sec IV TITRATE MARYCHUY; Protocol Dextrose/Lactated Ringer's (Dextrose 5%-Lactated Ringers) 1,000 mls @ 125 mls/ hr IV ASDIRECTED [facility] Stop: 05/11/18 14:59 Last Admin: 05/11/18 10:06 Dose: 125 mls/hr Ibuprofen (Motrin) 600 mg PO Q6H PRN PRN Reason: mild pain or fever Ketorolac Tromethamine (Toradol) Confirm Administered Dose 30 mg .ROUTE .STK- MED ONE Stop: 05/11/18 05:10 Ketorolac Tromethamine (Toradol) 30 mg IVPUSH Q6H [facility] Stop: 05/12/18 00:16 Last Admin: 05/12/18 00:55 Dose: Not Given Lidocaine/Epinephrine (Xylocaine-Mpf 2%-Epi 1:200,000) Confirm Administered Dose 20 ml .ROUTE .STK-MED ONE Stop: 05/11/18 05:15 Meperidine HCl (Demerol) 12.5 mg IVPUSH ONETIME PRN PRN Reason: shivering Meperidine HCl (Demerol) Confirm Administered Dose 50 mg .ROUTE .STK-MED ONE Stop: 05/11/18 06:19 Metoclopramide HCl (Reglan) 10 mg IVPUSH ONETIME ONE Stop: 05/11/18 04:59 Last Admin: 05/11/18 05:01 Dose: 10 mg Metoclopramide HCl (Reglan) Confirm Administered Dose 10 mg .ROUTE .STK-MED ONE Stop: 05/11/18 04:59 Last Admin: 05/11/18 07:00 Dose: Not Given Morphine Sulfate (Duramorph Pf) Confirm Administered Dose 10 mg .ROUTE .STK-MED ONE Stop: 05/11/18 05:17 Nalbuphine HCl (Nubain) 10 mg IVPUSH Q2H PRN PRN Reason: pain Ondansetron HCl (Zofran) 4 mg IVPUSH Q4H PRN PRN Reason: Nausea/Vomiting Ondansetron HCl (Zofran) 4 mg IVPUSH ONETIME PRN PRN Reason: Nausea/Vomiting Ondansetron HCl (Zofran) Confirm Administered Dose 4 mg .ROUTE .STK-MED ONE Stop: 05/11/18 05:10 Ondansetron HCl (Zofran) 4 mg IVPUSH ONETIME PRN PRN Reason: Nausea/Vomiting Oxytocin (Pitocin) Confirm Administered Dose 10 unit .ROUTE .STK-MED ONE Stop: 05/11/18 05:10 Phenylephrine HCl (Dg-Synephrine) Confirm Administered Dose 10 mg .ROUTE .STK- MED ONE Stop: 05/11/18 05:10 Sodium Chloride (Saline Flush) 10 ml FLUSH ASDIRECTED PRN PRN Reason: Keep Vein Open
== END 2018-05-13 16:30 | disposition home or self-care (01) | DRG 766 ==
LOC: JD.OBCHECK 21:54 → JD.OB 22:18 → JD.OBCHECK 22:42 → JD.OB 22:43 → OBSVTOIN 05-11 05:58 → JD.OB 05-11 05:59
PROVIDERS: ADMIT Obstetrics & Gynecology; ATTEND Obstetrics & Gynecology
PROC: 10D00Z1 Extraction of Products of Conception, Low, Open Approach (ICD-10-PCS; principal; 2018-05-11)
PROC: 10907ZC Drainage of Amniotic Fluid, Therapeutic from Products of Conception, Via Natural or Artificial Opening (ICD-10-PCS; 2018-05-11)
PROC: 10H07YZ Insertion of Other Device into Products of Conception, Via Natural or Artificial Opening (ICD-10-PCS; 2018-05-11)
PROC: 6A550ZT Pheresis of Cord Blood Stem Cells, Single (ICD-10-PCS; 2018-05-11)
PROC: 00HU33Z Insertion of Infusion Device into Spinal Canal, Percutaneous Approach (ICD-10-PCS; 2018-05-11)
PROC: 3E0R3BZ Introduction of Anesthetic Agent into Spinal Canal, Percutaneous Approach (ICD-10-PCS; 2018-05-11)
DX: O48.0 Post-term pregnancy (principal); Z3A.40 40 weeks gestation of pregnancy; O76 Abnormality in fetal heart rate and rhythm complicating labor and delivery; O77.0 Labor and delivery complicated by meconium in amniotic fluid; O13.4 Gestational [pregnancy-induced] hypertension without significant proteinuria, complicating childbirth; Z37.0 Single live birth
CPT/HCPCS: 01967; 01968; 36415; 51702; 59025; 82565; 84450; 84460; 85027; 86592; 86850; 86900; 86901; 94762; A9270-GY; J0690; J1885; J2175; J2270; J2370; J2405; J2590; J2765; J3010; J3490; J7042; J7120